=== PATIENT | male | born 1995 | race Caucasian/White ===

== ENCOUNTER 2020-08-12 15:14 | Emergency (ER) | payer OTHER ==
[~2020-08-12] VITALS: Ht 180.3 cm; Wt 100.0 kg
[2020-08-12 15:30] VITALS: BP 150/98
[2020-08-12] MEDS ORDERED: KETOROLAC 30 MG/1 ML IM ONE (16:00)
[2020-08-12] MEDS ORDERED: DIAZEPAM 5 MG TABLET PO ONE (16:00)
--- NOTE | 2020-08-12 17:30 | NUR ---
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
[2020-08-12] MEDS ORDERED: DIAZEPAM 5 MG TABLET ONE (17:44)
[2020-08-12] MEDS ORDERED: KETOROLAC 30 MG/1 ML ONE (17:44)
--- NOTE | 2020-08-12 17:56 | NUR ---
PT MEDICATED PER MAR
== END 2020-08-12 18:35 | disposition home or self-care (01) ==
LOC: ED 18:00
DX: S29.011A Strain of muscle and tendon of front wall of thorax, initial encounter (principal); M25.512 Pain in left shoulder; M54.2 Cervicalgia; X58.XXXA Exposure to other specified factors, initial encounter; Y93.89 Activity, other specified; Y92.89 Other specified places as the place of occurrence of the external cause; Y99.8 Other external cause status
CPT/HCPCS: 71046; 96372; 99283; J1885